=== PATIENT | female | born 1960 | race African-American/Black ===

== ENCOUNTER 2018-11-28 00:52 | Outpatient (CLI) | payer OTHER ==
[2018-11-28 14:36] LABS: Hemoglobin 12.9 g/dL (12.0-16.0); Mean Corpuscular HGB CONC 31.8 g/dL (32.0-36.0); Mean Corpuscular Hemoglobin 28.3 pg (27.0-31.0); Mean Corpuscular Volume 89.1 fL (78.0-98.0); Mean Platelet Volume 7.7 fL (7.4-10.4); Platelet Count 462 thou/uL (130-400); RBC Distribution Width 13.3 % (11.5-14.5); Red Blood Cell (RBC) Count 4.56 mill/uL (4.20-5.40); White Blood Cell (WBC) Count 8.4 thou/uL (4.8-10.8)
[2018-11-28 14:40] LABS: Bilirubin Negative (Negative); Blood, Urine Negative (Negative); Clarity CLEAR (Clear); Glucose, Urine (Dipstick) Negative (Negative); Leukocyte Negative (Negative); Nitrite Negative (Negative); Protein, Urine (Dipstick) Negative (Neg-Trace); Specific Gravity, Urine 1.022 (1.002-1.036); pH, Urine 6.5 (5.0-9.0)
[2018-11-28 14:45] LABS: Bacteria/HPF None Seen HPF (None Seen); Hyaline Casts/LPF 0-3 HYALINE CAST LPF (0-3 Hyaline); Pathc Cast-AUWi Flag 0.29 (0-2.49); RBC/HPF 0-3 HPF (0-3); Squamous Epithelial 0-3 HPF (0-3); WBC/HPF 0-3 HPF (0-3)
[2018-11-28 14:59] LABS: Anion Gap 9 mmol/L (10-20); BUN (Urea Nitrogen) 12 mg/dL (9.8-20.1); Calc. Creatinine Clearance 0 mL/min (70-130); Calcium 9.7 mg/dL (7.8-10.44); Carbon Dioxide 31 mmol/L (22-29); Chloride 103 mmol/L (98-107); Estimated GFR-MDRD Greater than 90; Glucose 93 mg/dL (70-105); Potassium 3.4 mmol/L (3.5-5.1); Prothrombin Time 13.2 SEC (12.0-14.7); Sodium 140 mmol/L (136-145)
--- NOTE | 2018-11-29 07:10 | EKG ---
Test Reason : Blood Pressure : / mmHG Vent. Rate : 071 BPM Atrial Rate : 071 BPM P-R Int : 166 ms QRS Dur : 096 ms QT Int : 416 ms P-R-T Axes : 066 -45 031 degrees QTc Int : 452 ms Normal sinus rhythm Left axis deviation Low voltage QRS Cannot rule out Anterior infarct , age undetermined Abnormal ECG When compared with ECG of 16-SEP-2013 06:46, Minimal criteria for Anterior infarct are now Present Confirmed by CHANDANA CONTRERAS ([id number]) on 11/29/2018 7:10:21 AM Referred By: RAMON Confirmed By:CHANDANA CONTRERAS
== END 2018-11-28 00:53 | disposition home or self-care (01) ==
LOC: LABBT 00:52
PROVIDERS: ATTEND Orthopaedic Surgery
DX: Z01.818 Encounter for other preprocedural examination (principal); M17.11 Unilateral primary osteoarthritis, right knee
CPT/HCPCS: 80048; 81001; 85027; 85610; 87081; 93005; 93010

== ENCOUNTER 2018-11-28 12:30 | Inpatient (IN) | payer OTHER ==
[2018-11-28 13:09] VITALS: BMI 35.9
[2018-12-10] MEDS ORDERED: Sodium Chloride 0.9% 100 ML ONE (06:00)
[2018-12-10] MEDS ORDERED: Vancomycin HCl 1.5 GM in Sodium Chloride 0.9% 250 ML 300 ML IVPB SCH ×2 (06:00→18:00)
[2018-12-10] MEDS ORDERED: Tranexamic Acid 1,000 MG/10 ML VIAL ONE ×2 (06:00→09:56)
[2018-12-10] MEDS ORDERED: Midazolam HCl 2 mg/2 ml Vial ONE ×2 (06:39→07:29)
[2018-12-10] MEDS ORDERED: Fentanyl 100 MCG/2 ML VIAL ONE ×4 (06:39→10:22)
--- NOTE | 2018-12-10 07:36 | HP ---
PREOPERATIVE DIAGNOSIS: Right knee osteoarthritis. HISTORY OF PRESENT ILLNESS: Ms. Mccall is a 58-year-old female, who presents complaining of right knee pain. She has had it for several years, difficulty ambulation, as high as 10/10. She has failed conservative measures and decided to proceed with total knee arthroplasty. PAST MEDICAL HISTORY: Includes renal cyst, splenectomy, anxiety, depression, hypertension, migraines, arthritis, prediabetic, thyroid nodules, right rotator cuff repair, vitamin D, and hypothyroidism. PAST SURGICAL HISTORY: , rectocele, hernia repair, hysterectomy, left oophorectomy, breast biopsy, cholecystectomy, right knee arthroscopy, EGD, colonoscopy, right oophorectomy, right rotator cuff repair, lysis of adhesions, pancreatic splenectomy in 2013. MEDICATIONS: 1. Tylenol Arthritis. 2. Xanax. 3. Doxepin. 4. Losartan. 5. Hydrochlorothiazide. 6. Latuda. 7. Brintellix. ALLERGIES: HYDROCODONE MAKES HER ITCH, LAMICTAL. SOCIAL HISTORY: Nonsmoker and nondrinker. Works as an office manager executive assistant. She is [employer]. PHYSICAL EXAMINATION: VITAL SIGNS: Afebrile. Stable. GENERAL: Alert and oriented female, in no acute distress. EXTREMITIES: Focused exam of her right lower extremity, the patient has 20 degrees of valgus deformity correctable. The patient has lateral joint line pain, it is about 0-1/10 on a bad day. The patient is neurovascularly intact. Previous healed scope portals. ASSESSMENT: Right knee valgus osteoarthritis. PLAN: I discussed with the patient undergoing a right total knee arthroplasty. I discussed the risks and benefits of surgery include pain, scar, bleeding, infection, damage to vital structures, decreased range of motion and strength, peroneal palsy, or loss of life or limb. The patient understands these risks and benefits and elected to proceed. Taken back to the OR, received preoperative antibiotics of vancomycin and Ancef. Job ID: [id number]
[2018-12-10] MEDS ORDERED: Bupivacaine/Epinephrine 0.25% 30 ML VIAL ONE (07:54)
[2018-12-10] MEDS ORDERED: Promethazine HCl 25 MG/ML VIAL IM PRN ×3 (08:29→13:31)
[2018-12-10] MEDS ORDERED: HYDROcodone/Acetaminophen 5/325 mg Tablet PO PRN ×2 (08:29)
[2018-12-10] MEDS ORDERED: Ropivacaine HCl/PF 250 ML in Premix Bag 1 BAG NERVE BLCK SCH (08:29)
[2018-12-10] MEDS ORDERED: Zolpidem Tartrate 5 MG TAB PO PRN ×2 (08:29→13:31)
[2018-12-10] MEDS ORDERED: Ondansetron PF 4 MG/2 ML Vial IVP PRN ×2 (08:29→13:31)
[2018-12-10] MEDS ORDERED: traMADol HCl 50 MG TAB PO PRN ×2 (08:29)
[2018-12-10] MEDS ORDERED: Fentanyl 100 MCG/2 ML VIAL IV PRN (08:30)
[2018-12-10] MEDS ORDERED: Acetaminophen 500 MG TAB PO PRN (08:32)
[2018-12-10] MEDS ORDERED: Ondansetron HCl/PF 4 MG/2 ML Vial IVP PRN (09:33)
[2018-12-10] MEDS ORDERED: Promethazine HCl 25 MG/ML VIAL SLOW IVP PRN (09:33)
[2018-12-10] MEDS ORDERED: Promethazine HCl 25 MG/ML VIAL ONE (09:44)
--- NOTE | 2018-12-10 11:01 | RAD ---
RIGHT KNEE TWO VIEWS: HISTORY: Postop total knee. COMPARISON: None. FINDINGS: Satisfactory postoperative appearance of right total knee arthroplasty with patella resurfacing. Exp ected postoperative gas and edema. IMPRESSION: Satisfactory postoperative appearance. POS: SANCHEZ
[2018-12-10] MEDS ORDERED: Ketorolac Tromethamine 30 MG/ML VIAL IVP SCH (12:00)
[2018-12-10] MEDS ORDERED: Ropivacaine 0.5% HCl/PF (150 MG/30 ML VIAL) ONE (12:26)
[2018-12-10] MEDS ORDERED: Ropivacaine 0.2% HCl/PF (40 MG/20 ML VIAL) ONE (12:26)
[2018-12-10] MEDS ORDERED: Bupivacaine HCl 0.5%/Epinephrine 1:200,000/PF 30 ml Vial ONE (12:26)
[2018-12-10] MEDS ORDERED: Ketorolac Tromethamine 30 MG/ML VIAL ONE (12:32)
[2018-12-10] MEDS ORDERED: PROPOFOL 200 MG/20 ML VIAL ONE (12:52)
[2018-12-10] MEDS ORDERED: Lidocaine 1% PF 5 ML VIAL ONE (12:52)
[2018-12-10] MEDS ORDERED: ePHEDrine 50 MG/ML VIAL ONE (12:52)
[2018-12-10] MEDS ORDERED: Ondansetron PF 4 MG/2 ML Vial ONE (12:52)
[2018-12-10] MEDS ORDERED: Dexamethasone 20 MG/5 ML VIAL ONE (12:52)
[2018-12-10] MEDS ORDERED: Ketorolac Tromethamine 30 MG/ML VIAL IVP PRN (13:31)
[2018-12-10] MEDS ORDERED: HYDROcodone/Acetaminophen 10/325 mg Tablet PO PRN (13:31)
[2018-12-10] MEDS ORDERED: Acetaminophen 325 MG TAB PO PRN (13:31)
[2018-12-10] MEDS ORDERED: Fentanyl 100 MCG/2 ML VIAL SLOW IVP PRN (13:31)
[2018-12-10] MEDS ORDERED: Lurasidone HCl 40 MG TABLET PO PRN (13:53)
[2018-12-10] MEDS ORDERED: Senokot S 8.6-50 MG TAB PO SCH (14:00)
[2018-12-10] MEDS ORDERED: Aspirin 81 mg Enteric Coated Tablet PO SCH (14:00)
[2018-12-10] MEDS ORDERED: Multivitamin W/ Minerals 1 TAB PO SCH (14:00)
[2018-12-10] MEDS ORDERED: Ferrous Gluconate 324 MG TAB PO SCH (14:00)
[2018-12-10] MEDS: diphenhydrAMINE 25 MG CAP PO PRN ×2 (14:58→21:27)
[2018-12-10] MEDS: CEFAZOLIN 2 GM in Premix Bag 1 BAG IVPB SCH ×2 (15:00→21:29)
--- NOTE | 2018-12-10 15:02 | OP ---
DATE OF PROCEDURE: 12/10/2018 PREOPERATIVE DIAGNOSIS: Right knee osteoarthritis, valgus. POSTOPERATIVE DIAGNOSIS: Right knee osteoarthritis, valgus. PROCEDURE PERFORMED: Right total knee arthroplasty. TRANSMISSION AND COORDINATION ENGINEER: Mare Gonzalez PA-C ANESTHESIA: The patient received a LMA with a single-shot sciatic and adductor canal. ESTIMATED BLOOD LOSS: 100 mL. TOURNIQUET TIME: 88 minutes at 300 mmHg. ANTIBIOTICS: Ancef 2 g, vancomycin 1.5 g, and the patient received TXA 1 g. IMPLANTS: [employer] Tri[employer]lon size 6 CR femur, size 6 tibial base plate, a size 6 CS 9 mm poly, A29 patella. COMPLICATIONS: None. HISTORY OF PRESENT ILLNESS: Ms. Mccall is a 58-year-old female, who has had years of right knee pain. The patient had arthroscopy performed with meniscectomy, in which she continued to have pain postprocedure. The patient had undergone management with injections, therapy, and NSAIDs and failed conservative measures. She had years of pain, and I discussed the right total knee arthroplasty. The patient had valgus deformity, which I had discussed could be corrected, but she may have a postop footdrop. I discussed the risks and benefits of surgery, pain, scar, bleeding, infection, damage to vital structures, decreased range of motion and strength, nonunion, fracture above or below the implants, need for further surgeries, loss of life or limb, and possible deep vein thrombosis. They understands all of the risks and benefits and elects to proceed. DESCRIPTION OF PROCEDURE: Time-out was performed designating the patient's right lower extremity as the operative site, based on site, consents, and marking. After time-out, the patient's right lower extremity was prepped and draped in sterile fashion. Tourniquet was brought up for a total of 88 minutes. Anterior midline incision and medial patellar arthrotomy were performed. We did a subtle medial release for medial soft tissues. We then exposed the fat pad, excised it, exposed the patient's femur, mapped out, and cut 1 degree of valgus, 9 and 1, and 4 degrees of slope. We then removed this and placed our block into position, sized to a size 6, and cut anterior, posterior, chamfer cuts. We removed all the bone spurs. We then moved back, placed our pickle fork in position and exposed the patient's tibia. We cut the tibial eminence, exposed its entirety, placed our jig for mapping, mapped the tibia out and cut, 2 off the lateral side, 5 off the medial side, 0 degrees of varus and valgus and 4 degrees of slope, placed our laminar spreaders, removed the osteophytes, removed the medial and lateral menisci, ensured exposure of the tibia and, we then pinned our size 6 tray into position, which had anterior one-third in line with the tibial tubercle second ray. Overall good alignment. There was 0.5 mm of the edge that was just slightly where the small rongeur had taken away the osteophyte, but otherwise it was perfectly aligned in medial line of the bone. We moved back to place our poly and place our tray. The tray was not sitting down, so we put our cutting block back on to make sure anterior cut was clean, we did. We then came back, put tray and femur on it and fell right into place. The patient had good flexion and extension and very good stability in flexion as well as extension. I liked overall alignment, so I removed our guides for varus and valgus and for extension, we then cut the patella, which at its greatest diameter was about 27 mm, cut it down to about 14 mm. Slight lateral lip, but otherwise looked good. I medialized the patella, placed A29 patella. The patient tracked and overall had a good alignment. I ensured good position and then everted the patella. We drilled our lugs and then tracked our patella. We drilled for femur, removed our implants, cut our keel, washed, and then we cemented our tibia, removed all excess cement, placed our tibial tray. We then inserted poly. We then placed our femur, removed all excess cement, . We cemented our patella, came back, removed all excess cement, washed out the joint and then closed the medial patellar arthrotomy with #2 Quill, 0 Quill, 2-0 Quill and glue. The patient will be followed in-house. The patient will be admitted per [facility] protocol. Job ID: [id number]
--- NOTE | 2018-12-10 15:27 | PDOC.PN ---
- Subjective Encounter Start Date: 12/10/18 Encounter Start Time: 15:00 Subjective: no knee pain, is eating her lunch -: has amb 50ft with PT post op - Objective MAR Reviewed: Yes Vital Signs & Weight: Weight Weight 250 lb Phys Exam - Physical Examination HEENT: PERRLA, moist MMs Neck: no JVD, supple Respiratory: no wheezing, no rales Cardiovascular: RRR, no significant murmur Gastrointestinal: soft, non-tender, positive bowel sounds Musculoskeletal: pulses present right knee in dressing Neurological: non-focal, moves all 4 limbs Psychiatric: normal affect, A&O x 3 Dx/Plan (1) Status post total right knee replacement Code(s): Z96.651 - PRESENCE OF RIGHT ARTIFICIAL KNEE JOINT Status: Acute (2) HTN (hypertension) Code(s): I10 - ESSENTIAL (PRIMARY) HYPERTENSION Status: Chronic Qualifiers: Hypertension type: essential hypertension Qualified Code(s): I10 - Essential (primary) hypertension (3) Anxiety Code(s): F41.9 - ANXIETY DISORDER, UNSPECIFIED Status: Chronic (4) H/O migraine Code(s): Z86.69 - PERSONAL HISTORY OF DIS OF THE NERVOUS SYS AND SENSE ORGANS Status: Chronic (5) Obesity (BMI 30-39.9) Code(s): E66.9 - OBESITY, UNSPECIFIED Status: Chronic - Plan on asp bid, fentanyl, norco prn, ropivacaine nr block -: continue hyzaar -: PT to mobilize per ortho adv -: hemostable * . Review of Systems - Medications/Allergies Allergies/Adverse Reactions: Allergies Allergy/AdvReac Type Severity Reaction Status Date / Time hydrocodone Allergy ITCHING Verified 11/28/18 13:11 lamotrigine [From Lamictal] Allergy SEVERE RASH Verified 11/28/18 13:11 Medications: Current Medications Acetaminophen (Tylenol) 1,000 mg PO Q6H PRN PRN Reason: Headache/Fever or Pain Acetaminophen (Tylenol) 650 mg PO Q4H PRN PRN Reason: Headache/Fever or Pain Hydrocodone Bitart/Acetaminophen ([place] 10/325) 1 tab PO Q4H PRN PRN Reason: Moderate Pain (4-6) Last Admin: 12/10/18 14:58 Dose: 1 tab Hydrocodone Bitart/Acetaminophen ([place] 10/325) 2 tab PO Q4H PRN PRN Reason: Severe Pain (7-10) Aspirin (Ecotrin) 81 mg PO BID [facility] Aspirin (Ecotrin) 81 mg PO NOW [facility] Stop: 12/10/18 16:00 Diphenhydramine HCl (Benadryl) 25 mg PO Q6H PRN PRN Reason: Itching Last Admin: 12/10/18 14:58 Dose: 25 mg Fentanyl (Sublimaze) 50 mcg SLOW IVP Q30MIN PRN PRN Reason: Moderate Pain (4-6) Fentanyl (Sublimaze) 100 mcg SLOW IVP Q1H PRN PRN Reason: Severe Pain (7-10) Ferrous Gluconate (Fergon) 324 mg PO BID [facility] Ferrous Gluconate (Fergon) 324 mg PO NOW [facility] Stop: 12/10/18 16:00 HCTZ/Losartan Potassium (Hyzaar 50/12.5) 1 tab PO QAM [facility] Ropivacaine 250 ml/ Device 250 mls @ 0 mls/hr NERVE BLCK INF [facility] Cefazolin Sodium/Dextrose 2 gm (/ Device) 50 mls @ 100 mls/hr IVPB Q8HR [facility] Stop: 12/10/18 22:29 Last Admin: 12/10/18 15:00 Dose: 50 mls Dextrose/Sodium Chloride (D5 1/2 Ns) 1,000 mls @ 100 mls/hr IV .Q10H [facility] Vancomycin HCl 1.5 gm/ Sodium (Chloride) 300 mls @ 200 mls/hr IVPB 1800 [facility] Stop: 12/10/18 21:00 Iron/Minerals/Multivitamins (Theragran M) 1 tab PO DAILY [facility] Iron/Minerals/Multivitamins (Theragran M) 1 tab PO NOW [facility] Stop: 12/10/18 16:00 Ketorolac Tromethamine (Toradol) 30 mg IVP Q8HR PRN PRN Reason: Pain Stop: 12/12/18 13:32 Lurasidone HCl (Latuda) 20 mg PO PRN PRN PRN Reason: .NEED FREQUENCY AND PARAMETERS Ondansetron HCl (Zofran) 4 mg IVP Q6H PRN PRN Reason: Nausea/Vomiting Xanax Patient's Home (Medication) 1 each PO BID [facility] Doxepin (Silenor) 3mg Patient's Home Medication 1 each PO HS [facility] Brintellix 10mg Patient's Home Medication 1 each PO QAM [facility] Promethazine HCl (Phenergan) 12.5 mg IM Q4H PRN PRN Reason: Nausea/Vomiting Senna/Docusate Sodium (Senokot S) 2 tab PO BID [facility] Senna/Docusate Sodium (Senokot S) 2 tab PO NOW [facility] Stop: 12/10/18 16:00 Sodium Chloride (Flush - Normal Saline) 10 ml IVF PRN PRN PRN Reason: Saline Flush Tramadol HCl (Ultram) 50 mg PO Q6H PRN PRN Reason: Mild Pain (1-3) Tramadol HCl (Ultram) 100 mg PO Q6H PRN PRN Reason: Moderate Pain (4-6) Zolpidem Tartrate (Ambien) 5 mg PO HSPRN PRN PRN Reason: Insomnia
[2018-12-10] MEDS: Dextrose 5 %-0.45 % NaCl 1,000 ML IV SCH (20:33)
[2018-12-10] MEDS ORDERED: DOXEPIN 3 MG PO SCH (21:00)
[2018-12-10] MEDS ORDERED: XANAX PO SCH (21:00)
[2018-12-10] MEDS: Aspirin 81 mg Enteric Coated Tablet PO SCH (21:26)
[2018-12-10] MEDS: Ferrous Gluconate 324 MG TAB PO SCH (21:26)
[2018-12-10] MEDS: Senokot S 8.6-50 MG TAB PO SCH (21:27)
[2018-12-10] MEDS: HYDROcodone/Acetaminophen 10/325 mg Tablet PO PRN (21:28)
[2018-12-11] MEDS: Dextrose 5 %-0.45 % NaCl 1,000 ML IV SCH ×3 (00:13→18:46)
[2018-12-11] MEDS: diphenhydrAMINE 25 MG CAP PO PRN ×3 (03:09→19:04)
[2018-12-11] MEDS: HYDROcodone/Acetaminophen 10/325 mg Tablet PO PRN ×4 (03:10→23:16)
[2018-12-11 05:51] LABS: Hemoglobin 10.3 g/dL (12.0-16.0); Mean Corpuscular HGB CONC 31.6 g/dL (32.0-36.0); Mean Corpuscular Hemoglobin 28.4 pg (27.0-31.0); Mean Platelet Volume 7.8 fL (7.4-10.4); Platelet Count 326 thou/uL (130-400); RBC Distribution Width 13.2 % (11.5-14.5); Red Blood Cell (RBC) Count 3.61 mill/uL (4.20-5.40); White Blood Cell (WBC) Count 10.6 thou/uL (4.8-10.8)
[2018-12-11] MEDS ORDERED: LURASIDONE HCL 20 MG PO SCH (07:15)
[2018-12-11] MEDS: Aspirin 81 mg Enteric Coated Tablet PO SCH ×2 (08:32→22:03)
[2018-12-11] MEDS: Ferrous Gluconate 324 MG TAB PO SCH ×2 (08:32→22:03)
[2018-12-11] MEDS: Senokot S 8.6-50 MG TAB PO SCH ×2 (08:32→22:03)
[2018-12-11] MEDS: Multivitamin W/ Minerals 1 TAB PO SCH (08:32)
[2018-12-11] MEDS: Fentanyl 100 MCG/2 ML VIAL SLOW IVP PRN ×2 (08:34→17:53)
[2018-12-11] MEDS: traMADol HCl 50 MG TAB PO PRN ×3 (08:50→22:17)
[2018-12-11] MEDS ORDERED: Non-Formulary Item 1 EACH (Vortioxetine Hydrobromide [Trintellix] 10 MG) PO SCH (09:00)
[2018-12-11] MEDS ORDERED: BRINTELLIX 10 MG PO SCH (09:00)
[2018-12-11] MEDS: ALPRAZolam 0.25 MG TAB PO SCH ×2 (11:02→22:06)
--- NOTE | 2018-12-11 12:33 | PDOC.PN ---
- Subjective Encounter Start Date: 12/11/18 Encounter Start Time: 09:45 Subjective: sitting in chair, no sob -: feels better - Objective MAR Reviewed: Yes Vital Signs & Weight: Vital Signs (12 hours) Temp Pulse Resp BP Pulse Ox 12/11/18 09:16 99 12/11/18 08:06 98.9 F 82 18 146/91 H 99 12/11/18 04:00 99.2 F 86 20 129/79 92 L Weight Weight 250 lb I&O: 12/10/18 12/11/18 12/12/18 06:59 06:59 06:59 Intake Total 1520 Output Total 700 Balance 820 Result Diagrams: 12/11/18 05:00 Phys Exam - Physical Examination HEENT: PERRLA, moist MMs Neck: no JVD, supple Respiratory: no wheezing, no rales Cardiovascular: RRR, no significant murmur Gastrointestinal: soft, non-tender, positive bowel sounds Musculoskeletal: no edema, pulses present Neurological: non-focal, moves all 4 limbs Psychiatric: normal affect, A&O x 3 Dx/Plan (1) Status post total right knee replacement Code(s): Z96.651 - PRESENCE OF RIGHT ARTIFICIAL KNEE JOINT Status: Acute (2) HTN (hypertension) Code(s): I10 - ESSENTIAL (PRIMARY) HYPERTENSION Status: Chronic Qualifiers: Hypertension type: essential hypertension Qualified Code(s): I10 - Essential (primary) hypertension (3) Anxiety Code(s): F41.9 - ANXIETY DISORDER, UNSPECIFIED Status: Chronic (4) H/O migraine Code(s): Z86.69 - PERSONAL HISTORY OF DIS OF THE NERVOUS SYS AND SENSE ORGANS Status: Chronic (5) Obesity (BMI 30-39.9) Code(s): E66.9 - OBESITY, UNSPECIFIED Status: Chronic - Plan hemostable -: continue asp bid, hyzaar -: fentanyl, norco prn, ropivacaine nr block -: dc plan per ortho adv -: to amb with PT per ortho * . Review of Systems - Medications/Allergies Allergies/Adverse Reactions: Allergies Allergy/AdvReac Type Severity Reaction Status Date / Time hydrocodone Allergy ITCHING Verified 11/28/18 13:11 lamotrigine [From Lamictal] Allergy SEVERE RASH Verified 11/28/18 13:11 Medications: Current Medications Acetaminophen (Tylenol) 1,000 mg PO Q6H PRN PRN Reason: Headache/Fever or Pain Acetaminophen (Tylenol) 650 mg PO Q4H PRN PRN Reason: Headache/Fever or Pain Hydrocodone Bitart/Acetaminophen ([place] 10/325) 1 tab PO Q4H PRN PRN Reason: Moderate Pain (4-6) Last Admin: 12/10/18 14:58 Dose: 1 tab Hydrocodone Bitart/Acetaminophen ([place] 10/325) 2 tab PO Q4H PRN PRN Reason: Severe Pain (7-10) Last Admin: 12/11/18 11:39 Dose: 2 tab Alprazolam (Xanax) 0.25 mg PO BID [facility] Last Admin: 12/11/18 11:02 Dose: 0.25 mg Aspirin (Ecotrin) 81 mg PO BID [facility] Last Admin: 12/11/18 08:32 Dose: 81 mg Diphenhydramine HCl (Benadryl) 25 mg PO Q6H PRN PRN Reason: Itching Last Admin: 12/11/18 11:39 Dose: 25 mg Fentanyl (Sublimaze) 50 mcg SLOW IVP Q30MIN PRN PRN Reason: Moderate Pain (4-6) Last Admin: 12/11/18 08:34 Dose: 50 mcg Fentanyl (Sublimaze) 100 mcg SLOW IVP Q1H PRN PRN Reason: Severe Pain (7-10) Last Admin: 12/11/18 06:04 Dose: 100 mcg Ferrous Gluconate (Fergon) 324 mg PO BID [facility] Last Admin: 12/11/18 08:32 Dose: 324 mg HCTZ/Losartan Potassium (Hyzaar 50/12.5) 1 tab PO QAM [facility] Last Admin: 12/11/18 08:33 Dose: 1 tab Ropivacaine 250 ml/ Device 250 mls @ 0 mls/hr NERVE BLCK INF [facility] Last Admin: 12/11/18 11:48 Dose: 250 mls Dextrose/Sodium Chloride (D5 1/2 Ns) 1,000 mls @ 100 mls/hr IV .Q10H [facility] Last Admin: 12/11/18 10:22 Dose: Not Given Iron/Minerals/Multivitamins (Theragran M) 1 tab PO DAILY [facility] Last Admin: 12/11/18 08:32 Dose: 1 tab Ketorolac Tromethamine (Toradol) 30 mg IVP Q8HR PRN PRN Reason: Pain Stop: 12/12/18 13:32 Lurasidone HCl (Latuda) 20 mg PO PRN PRN PRN Reason: .NEED FREQUENCY AND PARAMETERS Ondansetron HCl (Zofran) 4 mg IVP Q6H PRN PRN Reason: Nausea/Vomiting Xanax Patient's Home (Medication) 1 each PO BID [facility] Doxepin (Silenor) 3mg Patient's Home Medication 1 each PO HS [facility] Brintellix 10mg Patient's Home Medication 1 each PO QAM [facility] Promethazine HCl (Phenergan) 12.5 mg IM Q4H PRN PRN Reason: Nausea/Vomiting Senna/Docusate Sodium (Senokot S) 2 tab PO BID [facility] Last Admin: 12/11/18 08:32 Dose: 2 tab Sodium Chloride (Flush - Normal Saline) 10 ml IVF PRN PRN PRN Reason: Saline Flush Tramadol HCl (Ultram) 50 mg PO Q6H PRN PRN Reason: Mild Pain (1-3) Tramadol HCl (Ultram) 100 mg PO Q6H PRN PRN Reason: Moderate Pain (4-6) Last Admin: 12/11/18 08:50 Dose: 100 mg Zolpidem Tartrate (Ambien) 5 mg PO HSPRN PRN PRN Reason: Insomnia
[2018-12-11] MEDS ORDERED: DOXEPIN HCL PO SCH (21:00)
[2018-12-12 05:21] LABS: Hemoglobin 10.5 g/dL (12.0-16.0); Mean Corpuscular HGB CONC 31.7 g/dL (32.0-36.0); Mean Corpuscular Hemoglobin 27.8 pg (27.0-31.0); Mean Corpuscular Volume 87.8 fL (78.0-98.0); Mean Platelet Volume 8.1 fL (7.4-10.4); Platelet Count 326 thou/uL (130-400); RBC Distribution Width 13.2 % (11.5-14.5); Red Blood Cell (RBC) Count 3.77 mill/uL (4.20-5.40); White Blood Cell (WBC) Count 11.1 thou/uL (4.8-10.8)
[2018-12-12] MEDS: Dextrose 5 %-0.45 % NaCl 1,000 ML IV SCH (06:11)
[2018-12-12] MEDS: traMADol HCl 50 MG TAB PO PRN ×2 (07:22→14:13)
[2018-12-12] MEDS: Aspirin 81 mg Enteric Coated Tablet PO SCH (08:14)
[2018-12-12] MEDS: Senokot S 8.6-50 MG TAB PO SCH (08:14)
[2018-12-12] MEDS: Multivitamin W/ Minerals 1 TAB PO SCH (08:15)
[2018-12-12] MEDS: Ferrous Gluconate 324 MG TAB PO SCH (08:15)
[2018-12-12] MEDS: ALPRAZolam 0.25 MG TAB PO SCH (08:15)
[2018-12-12] MEDS: diphenhydrAMINE 25 MG CAP PO PRN (09:25)
[2018-12-12] MEDS: HYDROcodone/Acetaminophen 10/325 mg Tablet PO PRN (09:25)
[2018-12-12 12:02] VITALS: BP 158/99; TEMP 98.8
--- NOTE | 2018-12-12 14:10 | PDOC.PN ---
- Subjective Encounter Start Date: 12/12/18 Encounter Start Time: 07:45 Subjective: sitting in chair, feels better -: no pain now - Objective MAR Reviewed: Yes Vital Signs & Weight: Vital Signs (12 hours) Temp Pulse Resp BP BP Pulse Ox 12/12/18 11:32 98.8 F 78 18 158/99 H 94 L 12/12/18 08:53 96 12/12/18 07:28 98.6 F 78 20 156/95 H 96 12/12/18 04:16 99.2 F 81 16 134/81 94 L Weight Admit Weight 250 lb Weight 250 lb I&O: 12/11/18 12/12/18 12/13/18 06:59 06:59 06:59 Intake Total 1520 480 Output Total 700 Balance 820 480 Result Diagrams: 12/12/18 04:22 Phys Exam - Physical Examination HEENT: PERRLA, moist MMs Neck: no JVD, supple Respiratory: no wheezing, no rales Cardiovascular: RRR, no significant murmur Gastrointestinal: soft, non-tender, positive bowel sounds Musculoskeletal: no edema, pulses present Neurological: non-focal, moves all 4 limbs Psychiatric: normal affect, A&O x 3 Dx/Plan (1) Status post total right knee replacement Code(s): Z96.651 - PRESENCE OF RIGHT ARTIFICIAL KNEE JOINT Status: Acute (2) HTN (hypertension) Code(s): I10 - ESSENTIAL (PRIMARY) HYPERTENSION Status: Chronic Qualifiers: Hypertension type: essential hypertension Qualified Code(s): I10 - Essential (primary) hypertension (3) Anxiety Code(s): F41.9 - ANXIETY DISORDER, UNSPECIFIED Status: Chronic (4) H/O migraine Code(s): Z86.69 - PERSONAL HISTORY OF DIS OF THE NERVOUS SYS AND SENSE ORGANS Status: Chronic (5) Obesity (BMI 30-39.9) Code(s): E66.9 - OBESITY, UNSPECIFIED Status: Chronic - Plan hemostable -: to continue asp bid, hyzaar -: dc plan per ortho advice * . Review of Systems - Medications/Allergies Allergies/Adverse Reactions: Allergies Allergy/AdvReac Type Severity Reaction Status Date / Time hydrocodone Allergy ITCHING Verified 11/28/18 13:11 lamotrigine [From Lamictal] Allergy SEVERE RASH Verified 11/28/18 13:11 Medications: Current Medications Acetaminophen (Tylenol) 1,000 mg PO Q6H PRN PRN Reason: Headache/Fever or Pain Acetaminophen (Tylenol) 650 mg PO Q4H PRN PRN Reason: Headache/Fever or Pain Hydrocodone Bitart/Acetaminophen ([place] 10/325) 1 tab PO Q4H PRN PRN Reason: Moderate Pain (4-6) Last Admin: 12/10/18 14:58 Dose: 1 tab Hydrocodone Bitart/Acetaminophen ([place] 10/325) 2 tab PO Q4H PRN PRN Reason: Severe Pain (7-10) Last Admin: 12/12/18 09:25 Dose: 2 tab Alprazolam (Xanax) 0.25 mg PO BID [facility] Last Admin: 12/12/18 08:15 Dose: 0.25 mg Aspirin (Ecotrin) 81 mg PO BID [facility] Last Admin: 12/12/18 08:14 Dose: 81 mg Diphenhydramine HCl (Benadryl) 25 mg PO Q6H PRN PRN Reason: Itching Last Admin: 12/12/18 09:25 Dose: 25 mg Fentanyl (Sublimaze) 50 mcg SLOW IVP Q30MIN PRN PRN Reason: Moderate Pain (4-6) Last Admin: 12/11/18 17:53 Dose: 50 mcg Fentanyl (Sublimaze) 100 mcg SLOW IVP Q1H PRN PRN Reason: Severe Pain (7-10) Last Admin: 12/11/18 06:04 Dose: 100 mcg Ferrous Gluconate (Fergon) 324 mg PO BID [facility] Last Admin: 12/12/18 08:15 Dose: 324 mg HCTZ/Losartan Potassium (Hyzaar 50/12.5) 1 tab PO QAM [facility] Last Admin: 12/12/18 08:14 Dose: 1 tab Ropivacaine 250 ml/ Device 250 mls @ 0 mls/hr NERVE BLCK INF [facility] Last Admin: 12/11/18 11:48 Dose: 250 mls Dextrose/Sodium Chloride (D5 1/2 Ns) 1,000 mls @ 100 mls/hr IV .Q10H [facility] Last Admin: 12/12/18 06:11 Dose: Not Given Iron/Minerals/Multivitamins (Theragran M) 1 tab PO DAILY [facility] Last Admin: 12/12/18 08:15 Dose: 1 tab Lurasidone HCl (Latuda) 20 mg PO PRN PRN PRN Reason: .NEED FREQUENCY AND PARAMETERS Ondansetron HCl (Zofran) 4 mg IVP Q6H PRN PRN Reason: Nausea/Vomiting Xanax Patient's Home (Medication) 1 each PO BID [facility] Doxepin (Silenor) 3mg Patient's Home Medication 1 each PO HS [facility] Brintellix 10mg Patient's Home Medication 1 each PO QAM [facility] Promethazine HCl (Phenergan) 12.5 mg IM Q4H PRN PRN Reason: Nausea/Vomiting Senna/Docusate Sodium (Senokot S) 2 tab PO BID [facility] Last Admin: 12/12/18 08:14 Dose: 2 tab Sodium Chloride (Flush - Normal Saline) 10 ml IVF PRN PRN PRN Reason: Saline Flush Tramadol HCl (Ultram) 50 mg PO Q6H PRN PRN Reason: Mild Pain (1-3) Tramadol HCl (Ultram) 100 mg PO Q6H PRN PRN Reason: Moderate Pain (4-6) Last Admin: 12/12/18 07:22 Dose: 100 mg Zolpidem Tartrate (Ambien) 5 mg PO HSPRN PRN PRN Reason: Insomnia
--- NOTE | 2018-12-12 21:38 | DIS ---
DATE OF ADMISSION: 12/10/2018 DATE OF DISCHARGE: 12/12/2018 DISCHARGE DISPOSITION: To home. PRIMARY DISCHARGE DIAGNOSIS: The patient is status post right total knee replacement. SECONDARY DISCHARGE DIAGNOSES: Hypertension, obesity, history of migraine, anxiety disorder. PROCEDURES DONE DURING HOSPITALIZATION: The patient had right total knee replacement done by Dr. Moran on 12/10/2018. H and H 10 and 33, platelet count is 326. DISCHARGE MEDICATIONS: 1. Xanax 1 mg p.o. twice daily. 2. Doxepin 3 mg p.o. at bedtime. 3. [place] p.r.n. for pain. 4. Losartan with hydrochlorothiazide 50/12.5 mg p.o. q.a.m. 5. Latuda 20 mg p.r.n. 6. Trintellix 10 mg p.o. q.a.m. 7. Aspirin 81 mg p.o. twice daily. ALLERGIES: ALLERGIC TO HYDROCODONE AND LAMOTRIGINE. DISCHARGE PLAN: The patient to follow up with Dr. Moran as advised and primary care physician in one week. BRIEF COURSE DURING HOSPITALIZATION: The patient initially was electively admitted by Dr. Moran on 12/10/2018 for right total knee arthroplasty. Postop sound physicians were consulted for comanagement of medical issues. She has remained hemodynamically stable postop. Her H and H are stable. She has been participating well with physical therapy postop. She has been cleared for discharge by Dr. Moran. She needs to continue aspirin twice daily for post knee replacement DVT prophylaxis. The patient needs to continue all her home medication as before. Please see a [id number] documentation for the day of discharge on [email or web address] (formerly [employer]). Job ID: [id number]
== END 2018-12-12 14:35 | disposition home or self-care (01) | DRG 470 ==
LOC: SJJU 12-10 05:27 → EDSTATUS 12-10 12:30 → SJJU 12-10 13:24
PROVIDERS: ADMIT Orthopaedic Surgery; ATTEND Orthopaedic Surgery
PROC: 0SRC0J9 Replacement of Right Knee Joint with Synthetic Substitute, Cemented, Open Approach (ICD-10-PCS; principal; 2018-12-10)
DX: M17.11 Unilateral primary osteoarthritis, right knee (principal); F41.9 Anxiety disorder, unspecified; F32.9 Major depressive disorder, single episode, unspecified; I10 Essential (primary) hypertension; G43.909 Migraine, unspecified, not intractable, without status migrainosus; E03.9 Hypothyroidism, unspecified; M21.061 Valgus deformity, not elsewhere classified, right knee; E66.9 Obesity, unspecified; Z90.49 Acquired absence of other specified parts of digestive tract; Z90.710 Acquired absence of both cervix and uterus; Z90.722 Acquired absence of ovaries, bilateral; Z88.5 Allergy status to narcotic agent; Z68.35 Body mass index [BMI] 35.0-35.9, adult
CPT/HCPCS: 36415; 85027; 86850; 86900; 86901; C1713; C1776; J0670; J1100; J1885; J2001; J2250; J2405; J2550; J2704; J2795; J3010; J3370; J3490; J7050; Q0163

== ENCOUNTER 2018-12-06 10:16 | Outpatient (CLI) | payer BC | END 2018-12-06 10:17 | disposition home or self-care (01) | LOC: LABBT 10:16 | PROVIDERS: ATTEND Orthopaedic Surgery | DX: Z01.812 Encounter for preprocedural laboratory examination (principal); M17.11 Unilateral primary osteoarthritis, right knee | CPT/HCPCS: 86850; 86900; 86901 ==

== ENCOUNTER 2019-06-10 10:39 | Outpatient (CLI) | payer BC ==
--- NOTE | 2019-06-10 12:55 | ULT ---
BILATERAL RENAL ULTRASOUND COMPLETE: HISTORY: Followup cyst. COMPARISON: 12/22/2016. FINDINGS: The right kidney measures 12.3 x 6.5 x 6.0 cm. The left kidney measures 11.8 x 6.0 x 6.3 cm. The bl adder is unremarkable. A 2 x 2.4 cm cyst upper pole right kidney. No perinephric process. No hydro nephrosis. IMPRESSION: Right renal cyst. No hydronephrosis. POS: [facility]
== END 2019-06-10 10:40 | disposition home or self-care (01) ==
LOC: BICULT 10:39
PROVIDERS: ATTEND Urology
DX: Q61.01 Congenital single renal cyst (principal)
CPT/HCPCS: 36415; 76770; 80048; 81001; 87086